=== PATIENT | female | born 1975 | race Caucasian/White ===

== ENCOUNTER 2017-10-13 23:41 | Emergency (ER) | payer OTHER ==
[~2017-10-13] VITALS: Ht 162.6 cm; Wt 106.5 kg
[2017-10-13 23:42] VITALS: BP 125/90
[2017-10-14] MEDS ORDERED: PROPARACAINE OPHTH 0.5%, 15ML ONE (00:18)
[2017-10-14] MEDS ORDERED: PROPARACAINE OPHTH 0.5%, 15ML EACHEYE ONE (00:30)
[2017-10-14] MEDS ORDERED: FLUORESCEIN OPHTHALMIC 1 MG STRIP EACHEYE ONE (00:30)
== END 2017-10-14 01:01 | disposition home or self-care (01) ==
LOC: ED 10-14 00:40
DX: H10.021 Other mucopurulent conjunctivitis, right eye (principal); B99.9 Unspecified infectious disease
CPT/HCPCS: 99283